=== PATIENT | female | born 1975 | race Caucasian/White ===

== ENCOUNTER 2022-11-15 08:46 | Outpatient (CLI) | payer OTHER | END 2022-11-15 08:47 | disposition EMS.NT | LOC: EMS 08:46 | DX: R42 Dizziness and giddiness (principal); R00.0 Tachycardia, unspecified; F41.9 Anxiety disorder, unspecified ==

== ENCOUNTER 2022-11-15 09:33 | Emergency (ER) | payer OTHER ==
--- NOTE | 2022-11-15 10:04 | ED Physician Documentation ---
PD HPI CHEST PAIN - Stated complaint Stated Complaint: DIZZY/RAPID HEART RATE - Chief complaint Chief Complaint: Cardiac - History obtained from History obtained from: Patient, EMS - History of Present Illness Timing - onset: How many days ago (2-3 days of feeling general weakness, lightheaded, aching/myalgias. Some cough and congestion. Her watch was reading fast heart rate at times and today read about 110-120 and sats 87-89%. She felt lightheaded and near syncope when stood up. Called EMS and they found normal vitals.) Timing - duration: Days (2-3 days of general symptoms and today had near syncope when standing and her watch read abn vitals in particular. onset of chest tightness with it.) Timing - details: Gradual onset, Waxing and waning Quality: Tightness, Aching Location: Substernal, Left chest Radiation: Back Improved by: Rest Worsened by: Movement. No: Exertion, Inspiration, Palpation Associated symptoms: Feeling faint / dizzy, General Weakness. No: Shortness of air, Nausea, Palpitations Similar symptoms before: Has not had sx before Recently seen: Not recently seen Review of Systems Constitutional: reports: Chills, Myalgias. denies: Fever Nose: reports: Congestion. denies: Rhinorrhea / runny nose Throat: denies: Sore throat Respiratory: reports: Dyspnea, Cough. denies: Wheezing GI: reports: Nausea. denies: Abdominal Pain, Vomiting, Diarrhea Skin: denies: Rash, Lesions Neurologic: reports: Generalized weakness, Near syncope (today) PD PAST MEDICAL HISTORY - Past Medical History Cardiovascular: None Respiratory: None Neuro: None Endocrine/Autoimmune: None - Present Medications Home Medications: Ambulatory Orders Medication Instructions Recorded Confirmed Levothyroxine [Synthroid] 125 mcg PO QDAC 11/15/22 11/15/22 - Allergies Allergies/Adverse Reactions: Allergies Allergy/AdvReac Type Severity Reaction Status Date / Time No Known Drug Allergies Allergy Verified 11/15/22 09:42 PD ED PE NORMAL - Vitals Vital signs reviewed: Yes - General General: Alert and oriented X 3, No acute distress, Well developed/nourished - HEENT HEENT: Moist mucous membranes, Pharynx benign - Neck Neck: Supple, no meningeal sign, No adenopathy - Cardiac Cardiac: RRR, No murmur, No gallop, No rub, Strong equal pulses - Respiratory Respiratory: No respiratory distress, Clear bilaterally, Other (no chestwall tenderness) - Abdomen Abdomen: Soft, Non tender - Derm Derm: Normal color, Warm and dry - Extremities Extremities: Normal ROM s pain, No edema, No calf tenderness / cord - Neuro Neuro: Alert and oriented X 3, No motor deficit, Normal speech Results - Vitals Vitals: Vital Signs - 24 hr 11/15/22 11/15/22 11/15/22 09:39 12:14 12:15 Temperature 35.9 C L Heart Rate 72 62 65 Respiratory 16 12 13 Rate Blood Pressure 146/106 H 110/79 122/83 H O2 Saturation 100 97 100 Oxygen O2 Source Room air - EKG (time done) 09:37 EKG releavant findings:: EKG personally interpreted by author of this note. Relevant findings are: Rate: Rate (enter#) (61) Rhythm: NSR [place]: Normal Intervals: Normal [place] QRS: Normal Ischemia: Normal ST segments (very subtle minimal changes of ST V1 and laterally. T flat lateral. ). No: ST elevation c/w repol - Labs Labs: Laboratory Tests 11/15/22 11/15/22 11/15/22 10:03 10:03 10:03 WBC 4.7 L RBC 4.56 Hgb 13.7 Hct 41.4 MCV 90.8 MCH 30.0 MCHC 33.1 RDW 12.6 Plt Count 325 MPV 10.4 Neut # (Auto) 2.5 Lymph # (Auto) 1.4 L Isabella # (Auto) 0.6 Eos # (Auto) 0.2 Baso # (Auto) 0.0 Absolute Nucleated RBC 0.00 Nucleated RBC % 0.0 ESR Sodium 139 Potassium 3.8 Chloride 103 Carbon Dioxide 25 Anion Gap 11.0 BUN 10 Creatinine 0.7 Estimated GFR (MDRD) 90 Glucose 106 H Calcium 9.2 Magnesium 1.9 Total Bilirubin 0.5 AST 18 ALT 17 Alkaline Phosphatase 36 L Troponin I High Sens 4.8 C-Reactive Protein 1.4 H B-Natriuretic Peptide Total Protein 7.2 Albumin 3.7 Globulin 3.5 Albumin/Globulin Ratio 1.1 Lipase 35 11/15/22 11/15/22 10:03 10:03 WBC RBC Hgb Hct MCV MCH MCHC RDW Plt Count MPV Neut # (Auto) Lymph # (Auto) Isabella # (Auto) Eos # (Auto) Baso # (Auto) Absolute Nucleated RBC Nucleated RBC % ESR 29 H Sodium Potassium Chloride Carbon Dioxide Anion Gap BUN Creatinine Estimated GFR (MDRD) Glucose Calcium Magnesium Total Bilirubin AST ALT Alkaline Phosphatase Troponin I High Sens C-Reactive Protein B-Natriuretic Peptide 50 Total Protein Albumin Globulin Albumin/Globulin Ratio Lipase - Rads (name of study) chest xray Relevant Findings:: Prelim report reviewed, EMP independent interpretation of test (no acute changes.), See rad report PD Medical Decision Making - ED course Complexity details: considered differential (genearl viral type symptoms with malaise, chills, weakness. Has chest discomfort today and feeling lightheaded with standing. ECG with subtle ST changes anterolateral. CXR clear. Trop normal. Minimal elevation ESR. No rub but consider mild pericarditis viral. She has Naproxen at home; will use that.), d/w patient ED course: not clearly pericardial enough to go to [place], but would stay with more common NSAIDs for now. Departure - Departure Disposition: 01 Home, Self Care Clinical Impression: Episodic lightheadedness, Viral illness Condition: Stable Record reviewed to determine appropriate education?: Yes Instructions: ED Near Syncope Unkn Comments: It does sound like you have a viral type illness. This can affect our systemic response to things like postural change in hydration etc. Your basic blood tests here are good without any signs of abnormality of your blood count or electrolytes or kidney function. Testing specific for your heart shows no signs of heart failure nor heart muscle injury. Your EKG has a very slight irregularity that could suggest some early and inflammation around the heart. As such I would suggest an anti-inflammatory such as naproxen 2 [id number] tablets twice daily for the next 5 to 6 days. This would be the main treatment for that. Otherwise your oxygenation, heart rate, blood pressure are good here. Your chest x-ray is clear without any signs of pneumonia nor fluid in the lungs. Stay well-hydrated and see how you feel over the next several days. Return if worsening symptoms overall. Tylenol if needed in addition for fevers or aches. Discharge Date/Time: 11/15/22 12:15
[2022-11-15 10:41] LABS: BASOPHILS % (AUTO) 0.4 %; EOSINOPHILS # (AUTO) 0.2 10^3/uL (0.0-0.7); EOSINOPHILS % (AUTO) 4.7 %; HCT - HEMATOCRIT 41.4 % (37.0-47.0); HGB - HEMOGLOBIN 13.7 g/dL (12.0-16.0); LYMPHOCYTES # (AUTO) 1.4 10^3/uL (1.5-3.5); LYMPHOCYTES % (AUTO) 29.8 %; MEAN CORPUSCULAR HGB CONC 33.1 g/dL (32.0-36.0); MEAN CORPUSCULAR VOLUME 90.8 fL (81.0-99.0); MEAN PLATELET VOLUME 10.4 fL (7.9-10.8); MONOCYTES # (AUTO) 0.6 10^3/uL (0.0-1.0); NEUTROPHILS # (AUTO) 2.5 10^3/uL (1.5-6.6); NEUTROPHILS % (AUTO) 52.9 %; PLT - PLATELET COUNT 325 10^3/uL (130-450); RED BLOOD COUNT 4.56 10^6/uL (4.20-5.40); RED CELL DISTRIBUTION WIDTH 12.6 % (12.0-15.0); WHITE BLOOD COUNT 4.7 x10^3/uL (4.8-10.8)
[2022-11-15 10:56] LABS: ALBUMIN 3.7 g/dL (3.2-5.5); ALBUMIN/GLOBULIN RATIO 1.1 (1.0-2.2); BILIRUBIN,TOTAL 0.5 mg/dL (0.2-1.0); CALCIUM 9.2 mg/dL (8.5-10.3); CREATININE 0.7 mg/dL (0.4-1.0); CRP - C-REACTIVE PROTEIN 1.4 mg/dL (0-1.0); MAGNESIUM 1.9 mg/dL (1.7-2.8); POTASSIUM 3.8 mmol/L (3.5-5.0); TOTAL PROTEIN 7.2 g/dL (6.7-8.2)
--- NOTE | 2022-11-15 11:06 | XRAY Report ---
PROCEDURE: Chest 1 View X-Ray INDICATIONS: dyspnea TECHNIQUE: One view of the chest was acquired. COMPARISON: None. FINDINGS: Surgical changes and devices: None. Lungs and pleura: No pleural effusions or pneumothorax. Lungs are clear. Mediastinum: Mediastinal contours appear normal. Heart size is normal. Bones and chest wall: No suspicious bony lesions. Overlying soft tissues appear unremarkable. IMPRESSION: No acute cardiopulmonary process. Reviewed by: Alex Sadler on 11/15/2022 11:04 AM PDT Approved by: Alex Sadler on 11/15/2022 11:04 AM PDT Station ID: [id number]
[2022-11-15] MEDS ORDERED: KETOROLAC 15 MG/ML VIAL IVP STA (11:56)
[2022-11-15 12:18] VITALS: BP 122/83
== END 2022-11-15 12:15 | disposition home or self-care (01) ==
LOC: ED 09:33
DX: B34.9 Viral infection, unspecified (principal); R42 Dizziness and giddiness
CPT/HCPCS: 36415; 80053; 83690; 83735; 83880; 84484; 85025; 85651; 86140; 93005; 96374; 99283